=== PATIENT | female | born 1950 | race Caucasian/White ===

== ENCOUNTER 2019-05-29 17:52 | Emergency (ER) | payer OTHER ==
[~2019-05-29] VITALS: Ht 157.5 cm; Wt 126.0 kg
[2019-05-29 18:13] VITALS: BP 131/73
[2019-05-29 18:41] LABS: CLARITY,URINE CLOUDY (Clear); COLOR,URINE YELLOW (Yellow); GLUCOSE, URINE NEGATIVE (Neg); KETONES,URINE TRACE mg/dl (Neg); LEUKOCYTE ESTERASE ,URINE LARGE (Neg); NITRITES, URINE POSITIVE (Neg); OCCULT BLOOD,URINE MODERATE (Neg); PROTEIN,URINE 100 mg/dl (Neg); UROBILINOGEN,URINE 0.2 E.U/dL (0.2-1.0)
--- NOTE | 2019-05-29 18:41 | NUR ---
PATIENT STATES SHE IS HAVING URINARY SYMPTOMS AND FEELS PRESSURE WHEN URINATING. STATES SHE HAS HAD ANKLE EDEMA FOR THE PAST FEW WEEKS, SINCE THE URINARY PROBLEMS BEGAN. DENIES ANY OTHER MEDICAL PROBLEMS.
[2019-05-29 18:45] LABS: UA COLLECTION TYPE CLN CATCH MIDSTREAM
[2019-05-29 18:47] LABS: BACTERIA,URINE 2+ /HPF (Neg); RBC,URINE 0-2 /HPF (0-2); SQUAMOUS EPITHELIAL CELL,UR FEW /LPF (FEW); WBC,URINE TNTC /HPF (0-4)
[2019-05-29] MEDS ORDERED: CIPR-230 PO (19:04)
[2019-05-29] MEDS ORDERED: PHEN-716 PO (19:04)
[2019-05-29] MEDS ORDERED: ciprofloxacin 250mg tablet PO ONE (19:05)
[2019-05-29] MEDS ORDERED: phenazopyridine 100mg tablet PO ONE (19:05)
== END 2019-05-29 19:41 | disposition home or self-care (01) ==
LOC: ER 17:53
DX: N39.0 Urinary tract infection, site not specified (principal); Z88.6 Allergy status to analgesic agent; Z91.012 Allergy to eggs; Z88.8 Allergy status to other drugs, medicaments and biological substances; Z91.018 Allergy to other foods; Z79.2 Long term (current) use of antibiotics; Z79.899 Other long term (current) drug therapy; Z90.49 Acquired absence of other specified parts of digestive tract; Z90.710 Acquired absence of both cervix and uterus; Z90.89 Acquired absence of other organs
CPT/HCPCS: 81001; 87077; 87088; 87186; 99283